=== PATIENT | male | born 1985 | race African-American/Black ===

== ENCOUNTER 2019-02-09 08:29 | Emergency (ER) | payer SELFPAY ==
[2019-02-09 09:07] LABS: Bilirubin Negative (Negative); Blood, Urine Moderate (Negative); Glucose, Urine (Dipstick) Negative (Negative); Leukocyte Small (Negative); Nitrite Negative (Negative); Protein, Urine (Dipstick) 30 mg/dL (Neg-Trace)
[2019-02-09 09:15] LABS: Clarity Hazy (Clear)
[2019-02-09 09:16] LABS: Bacteria/HPF Rare-Few HPF (None Seen); Squamous Epithelial 0-3 HPF (0-3); WBC/HPF 21-50 HPF (0-3)
[2019-02-09] MEDS ORDERED: Lidocaine 1% (PF) 30 ML VIAL ONE (09:26)
[2019-02-09] MEDS ORDERED: cefTRIAXone\\ROCEPHIN 250 MG VIAL ONE (09:26)
[2019-02-09] MEDS ORDERED: Azithromycin 250 MG TAB ONE (09:26)
== END 2019-02-09 09:59 | disposition home or self-care (01) ==
LOC: NAV ERS 08:29
DX: R36.9 Urethral discharge, unspecified (principal)
CPT/HCPCS: 81003; 81015; 96372; 99283; J0696; J2001